=== PATIENT | female | born 1995 | race Caucasian/White ===

== ENCOUNTER 2017-05-15 12:06 | Inpatient (IN) | payer OTHER ==
[~2017-05-15] VITALS: Ht 157.5 cm; Wt 76.0 kg
--- NOTE | 2017-05-15 15:22 | ERD ---
ER Documentation Chief Complaint Date/Time DATE: 05/15/17 TIME: 15:18 Chief Complaint pelvic pain x 1.5 weeks with dyuria HPI This is a 21-year-old female presenting to emergency department with dysuria and right lower pelvic pain 1.5 weeks. Patient was previously seen by her primary care provider and was told she has a "cyst" on her left ovary. Patient was told to follow-up with a specialist and has not been able to do so. Patient states she is waiting for an appointment. Patient continues to have dysuria with right sided lower pelvic pain. No fevers or chills. No vomiting or diarrhea. Patient admits to nausea. Patient also states she has swelling in her abdomen. No urinary frequency or urgency. No hematuria. No vaginal discharge or rash. ROS All systems reviewed and are negative except as per history of present illness. Allergies Allergies: Uncoded Allergies: PCN (Allergy, Unknown, HIVES, SOB, 05/15/17) PMhx/Soc Medical and Surgical Hx: pt denies Medical Hx History of Surgery: No Anesthesia Reaction: No Hx Neurological Disorder: No Hx Respiratory Disorders: No Hx Cardiac Disorders: No Hx Psychiatric Problems: No Hx Miscellaneous Medical Probl: No Hx Alcohol Use: No Hx Substance Use: No Hx Tobacco Use: No Smoking Status: Never smoker Physical Exam Vitals Vital Signs Date Time Temp Pulse Resp B/P Pulse Ox O2 Delivery O2 Flow Rate FiO2 05/15/17 12:32 99.5 108 20 144/92 96 Physical Exam Const: No acute distress, alert Head: Atraumatic Eyes: Normal Conjunctiva ENT: Normal External Ears, Nose and Mouth. Neck: Full range of motion..~ No meningismus. Resp: Clear to auscultation bilaterally Cardio: Regular rate and rhythm, no murmurs Abd: Soft, non tender. Normal bowel sounds, distended with ascites. negative murphys sign. negative rebound tenderness. negative peritoneal signs. Skin: No petechiae or rashes Back: No midline or flank tenderness Ext: No cyanosis, or edema Neur: Awake and alert Psych: Normal Mood and Affect Result Diagram: 05/16/17 0424 05/15/17 1540 Results 24 hrs Laboratory Tests Test 05/15/17 15:40 05/15/17 15:56 White Blood Count 5.310^3/ul Red Blood Count 4.5910^6/ul Hemoglobin 14.2g/dl Hematocrit 41.1% Mean Corpuscular Volume 89.5fl Mean Corpuscular Hemoglobin 30.9pg Mean Corpuscular Hemoglobin Concent 34.5g/dl Red Cell Distribution Width 12.3% Platelet Count 56268^3/UL Mean Platelet Volume 10.0fl Neutrophils % 53.5% Lymphocytes % 35.4% Monocytes % 10.3% Eosinophils % 0.4% Basophils % 0.4% Nucleated Red Blood Cells % 0.0/100WBC Neutrophils # (Manual) 2.910^3/ul Lymphocytes # 1.910^3/ul Monocytes # 0.610^3/ul Eosinophils # 0.010^3/ul Basophils # 0.010^3/ul Nucleated Red Blood Cells # 0.010^3/ul Sodium Level 143mmol/L Potassium Level 4.0mmol/L Chloride Level 103mmol/L Carbon Dioxide Level 24mmol/L Anion Gap 20 Blood Urea Nitrogen 11mg/dl Creatinine 0.63mg/dl Glucose Level 91mg/dl Lactic Acid Level 1.2mmol/L Calcium Level 9.5mg/dl Total Bilirubin 0.2mg/dl Direct Bilirubin 0.00mg/dl Indirect Bilirubin 0.2mg/dl Aspartate Amino Transf (AST/SGOT) 30IU/L Alanine Aminotransferase (ALT/SGPT) 32IU/L Alkaline Phosphatase 54IU/L Total Protein 8.2g/dl Albumin 4.7g/dl Globulin 3.50g/dl Albumin/Globulin Ratio 1.34 Lipase 123U/L Bedside Urine pH (LAB) 5.5 Bedside Urine Protein (LAB) Trace Bedside Urine Glucose (UA) Negative Bedside Urine Ketones (LAB) Negative Bedside Urine Blood Trace-lysed Bedside Urine Nitrite (LAB) Negative Bedside Urine Leukocyte Esterase (L Negative Current Medications Medications (Trade) Dose Ordered Sig/Demetrius Route PRN Reason Start Time Stop Time Status Last Admin Dose Admin IV Flush (NS 3 ml) 3 ml PER PROTOCOL IV 05/15/17 18:30 Ondansetron HCl (Zofran Inj) 4 mg Q6H PRN IV NAUSEA AND/OR VOMITING 05/15/17 18:30 Ibuprofen (Motrin) 600 mg Q6H PRN PO PAIN LEVEL 1-3 05/15/17 18:30 Acetaminophen/ Hydrocodone Bitart ([place] (5/325)) 1 tab Q6H PRN PO MODERATE PAIN LEVEL 4-6 05/15/17 18:30 Docusate Sodium 100 mg 100 mg Q12H PRN PO CONSTIPATION 05/15/17 18:30 Lactated Ringer's (Lr) 1,000 ml @ 125 mls/hr Q8H IV 05/15/17 18:30 05/15/17 23:22 DC 05/15/17 19:00 Procedures/MDM [place] [address] Radiology Main Line: [phone] DIAGNOSTIC IMAGING REPORT Patient: JENNIE PATTERSON : 1995 Age: 21 Sex: F MR #: [id number] DOS: 05/15/17 1509 Ordering MD: MODESTO VALDERRAMA NP Location: [facility] Room/Bed: PROCEDURE: US Pelvis. CLINICAL INDICATION: pelvic pain TECHNIQUE: Multiple sonographic images of the pelvis were obtained utilizing a transabdominal technique. The images were reviewed on a PACS workstation. COMPARISON: None. FINDINGS: The uterus and ovaries were not seen. There is a large cystic mass in the anterior abdomen and pelvis measuring 38.7 x 16.5 x 32.5 cm. No free fluid is present within the pelvis. RPTAT: AA IMPRESSION: Large cystic mass involving the abdomen and pelvis measuring up to 38.7 cm. Further evaluation with CT and surgical consultation is recommended. [place] [address] Radiology Main Line: [phone] DIAGNOSTIC IMAGING REPORT Patient: JENNIE PATTERSON : 1995 Age: 21 Sex: F MR #: [id number] DOS: 05/15/17 1626 Ordering MD: MODESTO VALDERRAMA NP Location: [facility] Room/Bed: PROCEDURE: CT abdomen and pelvis without IV contrast. CLINICAL INDICATION: Abdominal pain TECHNIQUE: CT scan of the abdomen and pelvis without contrast was performed on the [employer] volumetric [address] scanner. The patient was scanned without intravenous contrast. Coronal and sagittal reformatted images were obtained from the axial source images. The CTDI vol is 16.99 mGy and the DLP is 1019.36 mGy-cm. COMPARISON: None. FINDINGS: CT abdomen: The lung bases are clear. The heart size is not enlarged and is without pericardial thickening or effusion. A large cystic mass is seen originating from the pelvis extending into the abdomen which is well circumscribed. No evidence of nodularity or a soft tissue density within the cystic mass is seen. The cystic mass measures approximately 39 9 x 30.1 x 16.8 cm in size. Mass effect upon the surrounding structures is seen. The liver is normal in size and density and is without focal mass or intrahepatic biliary dilatation. The spleen is normal in size and homogeneous in density. The stomach is grossly unremarkable. The pancreas as visualized is normal. The gallbladder and biliary tree are unremarkable and there is no evidence for common bile duct dilatation. The adrenal glands are symmetric and normal. The kidneys are symmetrically unremarkable as well. No renal calculus or obstructive uropathy or mass lesion is seen. The aorta is of normal in caliber. There is no retroperitoneal lymphadenopathy. The antwon hepatis region is clear. The small and large bowel and mesentery, as visualized, are unremarkable. The normal appendix is identified. CT pelvis: The pelvic organs are normal. The pelvic sidewalls and inguinal regions are clear. No pelvic mass, lymphadenopathy, or focal fluid collection is seen. A small amount of free fluid is seen. No acute inflammation is seen. The urinary bladder is within normal limits. The surrounding osseous structures are unremarkable. No osteolytic or osteoblastic lesion is detected. IMPRESSION: 1. 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 2. Small amount of free fluid in the pelvis. MDM: This is a 21-year-old female presenting to emergency department with right lower quadrant pelvic pain and dysuria 1.5 weeks. Patient is afebrile and tachycardia with heart rate 10 8 bpm. Patient was told previously that she has a cyst on her left ovary. On physical exam patient has distention of abdomen and ascites. CBC shows no significant anemia or infection. CMP shows no significant electrolyte imbalance Lipase shows 123. Lactic acid is 1.2. Urine dip is negative for infection. Urine is negative. Ultrasound pelvis reviewed by radiologist as Large cystic mass involving the abdomen and pelvis measuring up to 38.7 cm. Further evaluation with CT and surgical consultation is recommended.. CT abdomen pelvis reviewed by radiologist as large abdominal pelvic cystic mass likely ovarian in orgin and may represent a cystic ovarian neoplasm. Discussed findings with Dr. Sales and he instructed me to consult laborist. Consulted laborist men's custom hair piece consultant and he will come examine the patient. Patient signed out to Arian Mcclellan pending possible admission. Departure Diagnosis: Primary Impression: Pelvic mass Condition: MODESTO Rivera NP May 15, 2017 15:22
[2017-05-15 15:50] LABS: URINE BLOOD (Dip) POC Trace-lysed (NEGATIVE)
[2017-05-15 15:56] LABS: BASOPHILS % 0.4 % (0.0-2.0); EOSINOPHILS % 0.4 % (0.0-7.0); HEMATOCRIT 41.1 % (37.0-47.0); HEMOGLOBIN 14.2 g/dl (12.0-16.0); LYMPHOCYTES # 1.9 10^3/ul (0.8-2.9); LYMPHOCYTES % 35.4 % (18.0-55.0); MEAN CORPUSCULAR HEMOGLOBIN 30.9 pg (29.0-33.0); MEAN CORPUSCULAR HGB CONC 34.5 g/dl (32.0-37.0); MEAN CORPUSCULAR VOLUME 89.5 fl (72.0-104.0); MONOCYTE # 0.6 10^3/ul (0.3-0.9); MONOCYTES % 10.3 % (0.0-13.0); NEUTROPHILS % 53.5 % (30.0-74.0); PLATELET COUNT 245 10^3/UL (140-415); RED BLOOD COUNT 4.59 10^6/ul (4.20-5.40); RED CELL DISTRIBUTION WIDTH 12.3 % (11.5-14.5); WHITE BLOOD COUNT 5.3 10^3/ul (4.8-10.8)
[2017-05-15 16:14] LABS: ALBUMIN 4.7 g/dl (3.3-4.9); ALBUMIN/GLOBULIN RATIO 1.34; BILIRUBIN,INDIRECT 0.2 mg/dl (0-1.1); BILIRUBIN,TOTAL 0.2 mg/dl (0.2-1.3); CALCIUM 9.5 mg/dl (8.4-10.2); CREATININE 0.63 mg/dl (0.44-1.00); TOTAL PROTEIN 8.2 g/dl (6.1-8.1)
--- NOTE | 2017-05-15 16:38 | RADRPT ---
PROCEDURE: US Pelvis. CLINICAL INDICATION: pelvic pain TECHNIQUE: Multiple sonographic images of the pelvis were obtained utilizing a transabdominal cleve hnique. The images were reviewed on a PACS workstation. COMPARISON: None. FINDINGS: The uterus and ovaries were not seen. There is a large cystic mass in the anterior abdomen and pelvis measuring 38.7 x 16.5 x 32.5 cm. No free fluid is present within the pelvis. RPTAT: AA IMPRESSION: Large cystic mass involving the abdomen and pelvis measuring up to 38.7 cm. Further evaluation with CT and surgical consultation is recommended. .Speedy De Santiago MD, MD Date Time Electronically viewed and signed by .Speedy De Santiago MD, on 05/15/2017 16:37 .S/
--- NOTE | 2017-05-15 17:44 | RADRPT ---
AMENDMENT: 05/15/2017 5:54:06 PM Wes Hamilton M.D Mild bilateral hydroureteronephrosis is also seen secondary to compression from the large abdominal pelvic mass. PROCEDURE: CT abdomen and pelvis without IV contrast. CLINICAL INDICATION: Abdominal pain TECHNIQUE: CT scan of the abdomen and pelvis without contrast was performed on the [employer] volumetric [address] scanner. The patient was scanned without intravenous contrast. Coronal and sagittal refo rmatted images were obtained from the axial source images. The CTDI vol is 16.99 mGy and the DLP is 1019.36 mGy-cm. COMPARISON: None. FINDINGS: CT abdomen: The lung bases are clear. The heart size is not enlarged and is without pericardial thickening or e ffusion. A large cystic mass is seen originating from the pelvis extending into the abdomen which is well cir cumscribed. No evidence of nodularity or a soft tissue density within the cystic mass is seen. The cystic mass measures approximately 39 9 x 30.1 x 16.8 cm in size. Mass effect upon the surrounding structures is seen. The liver is normal in size and density and is without focal mass or intrahepatic biliary dilatation . The spleen is normal in size and homogeneous in density. The stomach is grossly unremarkable. T he pancreas as visualized is normal. The gallbladder and biliary tree are unremarkable and there is no evidence for common bile duct dilatation. The adrenal glands are symmetric and normal. The kid neys are symmetrically unremarkable as well. No renal calculus or obstructive uropathy or mass lesi on is seen. The aorta is of normal in caliber. There is no retroperitoneal lymphadenopathy. The antwon hepatis region is clear. The small and large bowel and mesentery, as visualized, are unremarkable. The norm al appendix is identified. CT pelvis: The pelvic organs are normal. The pelvic sidewalls and inguinal regions are clear. No pelvic mass, lymphadenopathy, or focal fluid collection is seen. A small amount of free fluid is seen. No acute inflammation is seen. The urinary bladder is within normal limits. The surrounding osseous structures are unremarkable. No osteolytic or osteoblastic lesion is detect ed. IMPRESSION: 1. Large abdominal pelvic cystic mass likely ovarian in origin and may represent a cystic ovarian n eoplasm. 2. Small amount of free fluid in the pelvis. RPTAT: HPNM Klaus Hamilton, Physician Date Time Electronically viewed and signed by Klaus Hamilton, Physician on 05/15/2017 17:54 /
--- NOTE | 2017-05-15 18:20 | EN ---
Date/Time of Note Date/Time of Note DATE: 05/15/17 TIME: 18:18 ER Progress Note Patient was handed off to me. Laborist on-call was consulted. They versed surgeon chief has decided to admit. Attending was updated. Patient will be transferred to the care of the laborist surgeon chief. MOIRA LOZANO PA-C May 15, 2017 18:20
[2017-05-15] MEDS ORDERED: DOCUSATE SODIUM 100 MG CAP PO PRN (18:30)
[2017-05-15] MEDS ORDERED: HYDROCODONE/APAP (5/325) TAB PO PRN (18:30)
[2017-05-15] MEDS ORDERED: IBUPROFEN 600 MG TAB PO PRN (18:30)
[2017-05-15] MEDS ORDERED: NACL 0.9% 3 ML SYG IV SCH (18:30)
[2017-05-15] MEDS ORDERED: LACTATED RINGER'S 1,000 ML IV SCH (18:30)
[2017-05-15 20:55] VITALS: BP 130/85; RESP 20
[2017-05-15] MEDS ORDERED: ONDANSETRON 4 MG INJ IV PRN (21:00)
[2017-05-15] MEDS ORDERED: ACETAMINOPHEN 325 MG TAB PO PRN (21:00)
[2017-05-15 21:59] VITALS: TEMP 99.6
[2017-05-15 23:25] VITALS: Ht 157.5 cm; Wt 76.0 kg
[2017-05-15] MEDS ORDERED: HYDROmorphONE 1 MG/ML SYG IV PRN (23:30)
[2017-05-15] MEDS: DEXTROSE 5%-LR 1,000 ML IV SCH (23:55)
--- NOTE | 2017-05-16 03:07 | HP ---
DATE OF ADMISSION: 05/15/2017 HISTORY OF PRESENT ILLNESS: Patient is a 21-year-old who presents for approximately a month ago complaining of abdominal pain, worsening with a sharp stabbing pain all over her stomach. PAST MEDICAL HISTORY: None. PAST SURGICAL HISTORY: None. MEDICATIONS: None. PHYSICAL EXAMINATION: VITAL SIGNS: Stable. CARDIAC: Regular rhythm. . ABDOMEN: Soft, nontender. Appears to be distended. EXTREMITIES: There is no edema in the extremities. IMAGING STUDIES: Ultrasound and CT scan both show an approximately 39 x 30 cm x 17 cm cystic mass in the lower pelvis area consistent with ovarian mass. IMPRESSION: This is a 21-year-old with a 40 x 30 cm ovarian mass. Patient currently stable, minimal pain. No nausea or vomiting. PLAN: Patient will be admitted for surgical management and consultation will be asked for by a DATA ENTRY EMAIL PROCESSOR oncologist for further surgical management of this patient. Dictated By: Milo Spivey MD /amalia/[place] /Document#: [id number]
[2017-05-16 05:34] LABS: BASOPHILS % 0.6 % (0.0-2.0); EOSINOPHILS # 0.1 10^3/ul (0.0-0.5); EOSINOPHILS % 1.1 % (0.0-7.0); HEMATOCRIT 36.6 % (37.0-47.0); HEMOGLOBIN 12.5 g/dl (12.0-16.0); LYMPHOCYTES # 1.9 10^3/ul (0.8-2.9); MEAN CORPUSCULAR HEMOGLOBIN 31.1 pg (29.0-33.0); MEAN CORPUSCULAR HGB CONC 34.2 g/dl (32.0-37.0); MEAN PLATELET VOLUME 10.4 fl (7.4-10.4); MONOCYTE # 0.5 10^3/ul (0.3-0.9); MONOCYTES % 11.1 % (0.0-13.0); NEUTROPHILS % 47.2 % (30.0-74.0); PLATELET COUNT 198 10^3/UL (140-415); RED BLOOD COUNT 4.02 10^6/ul (4.20-5.40); RED CELL DISTRIBUTION WIDTH 12.3 % (11.5-14.5); WHITE BLOOD COUNT 4.7 10^3/ul (4.8-10.8)
[2017-05-16 06:02] LABS: INR 1.09; PROTIME 14.1 Sec (12.2-14.2); PT RATIO 1.1
[2017-05-16 06:03] LABS: PARTIAL THROMBOPLASTIN TIME 29.7 Sec (25.0-35.0)
[2017-05-16 06:21] LABS: CANCER ANTIGEN 125 16.8 U/ml (0.0-35.0); CARCINOEMBRYONIC ANTIGEN 0.4 ng/ml (0.0-5.0)
[2017-05-16 07:00] VITALS: BP 124/70; RESP 18
[2017-05-16] MEDS: DEXTROSE 5%-LR 1,000 ML IV SCH (11:56)
[2017-05-16] MEDS ORDERED: MAGNESIUM CITRATE 300 ML BTL PO ONE (12:00)
[2017-05-16 14:00] VITALS: BP 126/78; RESP 20
[2017-05-16 20:55] VITALS: BP 116/80; RESP 20
--- NOTE | 2017-05-16 21:24 | CONS ---
Date/Time of Note Date/Time of Note DATE: 05/16/17 TIME: 21:23 Consultation Date/Type/Reason Admit Date/Time May 15, 2017 at 18:32 Hx of Present Illness Shalom Carrington M.D. [facility] History and Physical Examination Becca Garcia Date:May 16, 2017 :1995 Age: 21 Physicians: Photocopying Machine Operator Director Biologics Oncologist Referring MD: Milo Spivey History of the Present Illness: A 21 year old female with a gradually increasing pelvic mass and the patient complains of the process gradually increasing over a year. The mass is cystic and 38 cm, now assocaited with nausea and pain. The markers are all negative. Medical history/ROS: all other systems unremarkable. Surgical history: no significant abdominal procedures. Medications: gardisil Allergies: No active allergies recorded Family Hx: non-contributary Social HX: non-contributary ROS: as above Colonoscopy Physical Examination General: Alert. HEENT: Pupils are equal, round, reactive to light and accommodation. Neck: Supple with no masses of lymphadenopathy. Breast: Deferred due to recent examination and responsibility of primary care physician. Chest: Clear to auscultation Heart: Normal rhythm with no murmur. Abdomen: massive mass and mod tender, no ascites nor organomeglay. Pelvic exam: deferred dueto virginity Rectal: as above. Neurological: Grossly intact Assessment: Pelvic-abdominal mass Plan: advise Laparoscoy USO possible contralateral cystectomy and staging and possible laoarotomy. All risks and benefits of this procedure have been discussed in detail with the patient, as well as alternative treatment strategies and their implications. The patient is aware that there is some possibility of a blood transfusion and its associated risks and benefits. She wishes to proceed and gives her informed consent. Shalom Carrington M.D. Social History Smoking Status: Never smoker Exam/Review of Systems Vital Signs Vitals Vital Signs Date Time Temp Pulse Resp B/P Pulse Ox O2 Delivery O2 Flow Rate FiO2 05/16/17 20:55 98.2 71 20 116/80 100 05/15/17 21:59 Room Air Intake and Output 05/15/17 05/15/17 05/16/17 15:00 23:00 07:00 Intake Total 850 ml Balance 850 ml Results Result Diagram: 05/16/17 0424 05/15/17 1540 Results 24 hrs Laboratory Tests Test 05/16/17 04:24 White Blood Count 4.7 L Red Blood Count 4.02 L Hemoglobin 12.5 Hematocrit 36.6 L Mean Corpuscular Volume 91.0 Mean Corpuscular Hemoglobin 31.1 Mean Corpuscular Hemoglobin Concent 34.2 Red Cell Distribution Width 12.3 Platelet Count 198 Mean Platelet Volume 10.4 Neutrophils % 47.2 Lymphocytes % 40.0 Monocytes % 11.1 Eosinophils % 1.1 Basophils % 0.6 Nucleated Red Blood Cells % 0.0 Neutrophils # (Manual) 2.2 Lymphocytes # 1.9 Monocytes # 0.5 Eosinophils # 0.1 Basophils # 0.0 Nucleated Red Blood Cells # 0.0 Prothrombin Time 14.1 Prothrombin Time Ratio 1.1 INR International Normalized Ratio 1.09 Activated Partial Thromboplast Time 29.7 Lactate Dehydrogenase 357 Alpha Fetoprotein 1.83 Carcinoembryonic Antigen 0.4 CA 125 Antigen 16.8 Serum HCG, Qualitative NEGATIVE Medications Medications Current Medications Ondansetron HCl (Zofran Inj) 4 mg Q6H PRN IV NAUSEA AND/OR VOMITING; Start at 18:30 Ibuprofen (Motrin) 600 mg Q6H PRN PO PAIN LEVEL 1-3; Start 05/15/17 at 18:30 Acetaminophen/ Hydrocodone Bitart ([place] (5/325)) 1 tab Q6H PRN PO MODERATE PAIN LEVEL 4-6; Start 05/15/17 at 18:30 Docusate Sodium 100 mg 100 mg Q12H PRN PO CONSTIPATION; Start 05/15/17 at 18:30 Dextrose/Lactated Ringer's (D5-Lr) 1,000 ml @ 80 mls/hr [id number] IV Last administered on 05/16/17t 11:56; Admin Dose 80 MLS/HR; Start 05/15/17 at 23:30 Hydromorphone HCl (Dilaudid) 0.5 mg Q4H PRN IV PAIN; Start 05/15/17 at 23:30 SHALOM CARRINGTON MD May 16, 2017 21:24
[2017-05-17] MEDS: DEXTROSE 5%-LR 1,000 ML IV SCH ×2 (00:46→12:37)
[2017-05-17 02:51] VITALS: BP 111/58; RESP 20
[2017-05-17 05:57] LABS: CALCIUM 8.8 mg/dl (8.4-10.2); CREATININE 0.66 mg/dl (0.44-1.00); POTASSIUM 3.7 mmol/L (3.5-5.1)
[2017-05-17 07:48] VITALS: BP 128/77; RESP 16
[2017-05-17] MEDS ORDERED: MAGNESIUM CITRATE 300 ML BTL PO ONE (10:00)
[2017-05-17 14:50] VITALS: BP 127/82; RESP 16
[2017-05-17 19:50] VITALS: BP 118/65; RESP 20
--- NOTE | 2017-05-17 22:19 | PN ---
Date/Time of Note Date/Time of Note DATE: 05/17/17 TIME: 22:15 Assessment/Plan VTE Prophylaxis VTE Prophylaxis Intervention: SCD's Lines/Catheters IV Catheter Type (from Nrsg): Peripheral IV Assessment/Plan Chief Complaint/Hosp Course Pelvic-abdominal mass Problems: Assessment/Plan A- tolerating prep, markers neg P- procedure tomorrow as no ORT today Subjective 24 Hr Interval Summary Free Text/Dictation Ongoing discomfort but tolerating prep. Exam/Review of Systems Vital Signs Vitals Vital Signs Date Time Temp Pulse Resp B/P Pulse Ox O2 Delivery O2 Flow Rate FiO2 05/17/17 19:50 98.3 75 20 118/65 98 05/15/17 21:59 Room Air Intake and Output 05/16/17 05/16/17 05/17/17 15:00 23:00 07:00 Intake Total 2160 ml 1190 ml Output Total 1600 ml Balance 560 ml 1190 ml Exam Resp- clear CVS- NSR Abd- soft mildly tender but very distended Ext- NT no edema Results Result Diagram: 05/16/17 0424 05/17/17 0453 Results 24 hrs Laboratory Tests Test 05/17/17 04:53 Sodium Level 143 Potassium Level 3.7 Chloride Level 107 Carbon Dioxide Level 25 Anion Gap 15 Blood Urea Nitrogen 6 L Creatinine 0.66 Glucose Level 93 Calcium Level 8.8 Medications Medications Current Medications Ondansetron HCl (Zofran Inj) 4 mg Q6H PRN IV NAUSEA AND/OR VOMITING; Start at 18:30 Ibuprofen (Motrin) 600 mg Q6H PRN PO PAIN LEVEL 1-3; Start 05/15/17 at 18:30 Acetaminophen/ Hydrocodone Bitart ([place] (5/325)) 1 tab Q6H PRN PO MODERATE PAIN LEVEL 4-6; Start 05/15/17 at 18:30 Docusate Sodium 100 mg 100 mg Q12H PRN PO CONSTIPATION; Start 05/15/17 at 18:30 Dextrose/Lactated Ringer's (D5-Lr) 1,000 ml @ 80 mls/hr [id number] IV Last administered on 05/17/17t 12:37; Admin Dose 80 MLS/HR; Start 05/15/17 at 23:30 Hydromorphone HCl (Dilaudid) 0.5 mg Q4H PRN IV PAIN; Start 05/15/17 at 23:30 SANTA CARRINGTON MD May 17, 2017 22:19
[2017-05-18] VITALS (22 sets, daily range): BP systolic 100–122; BP diastolic 51–77; PULSE 76–97; RESP 11–20
[2017-05-18] MEDS: DEXTROSE 5%-LR 1,000 ML IV SCH ×2 (02:48→15:33)
[2017-05-18] MEDS ORDERED: metroNIDAZOLE 500 MG/100 ML NS IVPB ONE (07:00)
--- NOTE | 2017-05-18 12:59 | HPN ---
Date/Time of Note Date/Time of Note DATE: 05/18/17 TIME: 12:58 Interval H&P Admission Note Pt. seen H&P reviewed: No system changes SANTA CARRINGTON MD May 18, 2017 12:59
[2017-05-18] MEDS ORDERED: MIDAZOLAM 1 MG/ML 2 ML INJ ONE (18:13)
[2017-05-18] MEDS ORDERED: METOCLOPRAMIDE 10 MG INJ ONE (18:13)
[2017-05-18] MEDS ORDERED: morphine SULFATE/PF (10 MG/10 ML) INJ ONE (18:14)
[2017-05-18] MEDS ORDERED: PHENYLephrine (100 MCG/ML) 5ML SYG ONE ×3 (18:25→19:19)
[2017-05-18] MEDS ORDERED: PROVENTIL HFA 6.7GM INHALER ONE (18:37)
[2017-05-18] MEDS ORDERED: DEXAMETHASONE 4 MG/ML 1 ML INJ ONE (18:53)
[2017-05-18] MEDS ORDERED: EPINEPHrine 100 MCG/10 ML SYG IV ONE (18:54)
[2017-05-18] MEDS ORDERED: EPINEPHrine 0.1 MG/ML SYG ONE (19:08)
[2017-05-18] MEDS ORDERED: ROCURONIUM 50 MG INJ ONE (19:10)
[2017-05-18] MEDS ORDERED: PROPOFOL 200 ML ONE (19:10)
[2017-05-18] MEDS ORDERED: FENTAnyl 50 MCG/ML VIAL ONE (19:30)
[2017-05-18] MEDS ORDERED: THROMBIN 5000 UNIT VIAL ONE (19:31)
[2017-05-18] MEDS ORDERED: HEMOSTATIC MATRIX SYG ZFS ONE (19:33)
[2017-05-18] MEDS ORDERED: HYDROmorphONE 2 MG/ML SYG ONE (20:07)
[2017-05-18] MEDS ORDERED: ESMOLOL 10 ML ONE (20:16)
[2017-05-18] MEDS ORDERED: NEOSTIGMINE 3 MG/3 ML SYRINGE ONE (20:39)
[2017-05-18] MEDS ORDERED: GLYCOPYRROLATE 0.4 MG INJ ONE (20:39)
[2017-05-18] MEDS: POTASSIUM CHLORIDE 20 MEQ in LACTATED RINGER'S 1,000 ML IV SCH (20:50)
--- NOTE | 2017-05-18 20:50 | OPPN ---
Date/Time of Note Date/Time of Note DATE: 05/18/17 TIME: 20:48 Operative Report Preoperative Diagnosis right adnexal mass Postoperative Diagnosis same with ureteral stricture Operation/Procedure Performed laparoscopic RSO, UD, minilap Anesthesia Type: general, spinal, other Estimated blood loss: 10 - 50 ml's Transfusion Required: yes Specimens RSO Grafts/Implants: none Complications: no SANTA CARRINGTON MD May 18, 2017 20:50
[2017-05-18] MEDS ORDERED: HYDROCODONE/APAP (5/325) TAB PO PRN (21:00)
[2017-05-18] MEDS: FAMOTIDINE 20 MG INJ IV SCH (21:00)
[2017-05-18] MEDS ORDERED: morphine 2 MG INJ IV PRN (21:00)
[2017-05-18] MEDS ORDERED: ACETAMINOPHEN 325 MG TAB PO PRN (21:00)
[2017-05-18] MEDS ORDERED: DIPHENHYDRAMINE 50 MG INJ IV PRN (21:00)
[2017-05-18 21:29] LABS: BASOPHILS % 0.2 % (0.0-2.0); HEMATOCRIT 36.7 % (37.0-47.0); HEMOGLOBIN 12.5 g/dl (12.0-16.0); LYMPHOCYTES # 1.6 10^3/ul (0.8-2.9); MEAN CORPUSCULAR HEMOGLOBIN 30.7 pg (29.0-33.0); MEAN CORPUSCULAR HGB CONC 34.1 g/dl (32.0-37.0); MEAN CORPUSCULAR VOLUME 90.2 fl (72.0-104.0); MEAN PLATELET VOLUME 9.8 fl (7.4-10.4); MONOCYTE # 0.2 10^3/ul (0.3-0.9); MONOCYTES % 2.1 % (0.0-13.0); NEUTROPHILS % 79.4 % (30.0-74.0); PLATELET COUNT 192 10^3/UL (140-415); RED BLOOD COUNT 4.07 10^6/ul (4.20-5.40); RED CELL DISTRIBUTION WIDTH 12.2 % (11.5-14.5); WHITE BLOOD COUNT 9.1 10^3/ul (4.8-10.8)
[2017-05-18] MEDS ORDERED: HYDROmorphONE 1 MG/ML SYG IV PRN ×2 (21:30)
[2017-05-18] MEDS ORDERED: ONDANSETRON 4 MG INJ IV PRN (21:30)
[2017-05-18] MEDS ORDERED: HYDROmorphONE (0.2 MG/ML) 10ML SYG IV ONE (21:30)
[2017-05-18] MEDS ORDERED: CEFAZOLIN 1 GM/50 ML (PMX) 50 ML IVPB SCH (21:30)
[2017-05-18 22:01] LABS: CALCIUM 8.2 mg/dl (8.4-10.2); CREATININE 0.57 mg/dl (0.44-1.00); POTASSIUM 3.6 mmol/L (3.5-5.1)
[2017-05-18] MEDS: KETOROLAC 30 MG INJ IV PRN (22:15)
[2017-05-18] MEDS: metroNIDAZOLE 500 MG/NS (PMX) 100 ML IVPB SCH (22:24)
[2017-05-18] MEDS ORDERED: VITAMIN A & D 5 GM OINT PACKET TOP ONE (22:57)
[2017-05-18] MEDS: ONDANSETRON 4 MG INJ IV PRN (23:37)
[2017-05-19] VITALS: BP 107/53; PULSE 83; RESP 17
[2017-05-19 00:11] VITALS: BP 102/52; RESP 20
[2017-05-19] MEDS: DEXTROSE 5%-LR 1,000 ML IV SCH ×2 (02:30→12:11)
[2017-05-19] MEDS: metroNIDAZOLE 500 MG/NS (PMX) 100 ML IVPB SCH ×2 (05:11→12:31)
[2017-05-19] MEDS: KETOROLAC 30 MG INJ IV PRN ×2 (05:13→12:10)
[2017-05-19 05:20] LABS: ABNORMAL IP MESSAGE 1; BASOPHILS % 0.2 % (0.0-2.0); HEMATOCRIT 35.8 % (37.0-47.0); HEMOGLOBIN 12.5 g/dl (12.0-16.0); LYMPHOCYTES # 0.6 10^3/ul (0.8-2.9); LYMPHOCYTES % 9.3 % (18.0-55.0); MEAN CORPUSCULAR HEMOGLOBIN 30.7 pg (29.0-33.0); MEAN CORPUSCULAR HGB CONC 34.9 g/dl (32.0-37.0); MEAN PLATELET VOLUME 9.9 fl (7.4-10.4); MONOCYTE # 0.2 10^3/ul (0.3-0.9); MONOCYTES % 3.9 % (0.0-13.0); NEUTROPHILS % 86.3 % (30.0-74.0); PLATELET COUNT 187 10^3/UL (140-415); RED BLOOD COUNT 4.07 10^6/ul (4.20-5.40); RED CELL DISTRIBUTION WIDTH 11.9 % (11.5-14.5); WHITE BLOOD COUNT 6.1 10^3/ul (4.8-10.8)
[2017-05-19 05:26] LABS: POSITIVE DIFF @See below
[2017-05-19 06:19] LABS: ALBUMIN 3.6 g/dl (3.3-4.9); ALBUMIN/GLOBULIN RATIO 1.33; BILIRUBIN,INDIRECT 0.4 mg/dl (0-1.1); BILIRUBIN,TOTAL 0.4 mg/dl (0.2-1.3); CALCIUM 8.5 mg/dl (8.4-10.2); CREATININE 0.51 mg/dl (0.44-1.00); MAGNESIUM 1.8 mg/dl (1.7-2.5); POTASSIUM 3.8 mmol/L (3.5-5.1); TOTAL PROTEIN 6.3 g/dl (6.1-8.1)
[2017-05-19] MEDS: POTASSIUM CHLORIDE 20 MEQ in LACTATED RINGER'S 1,000 ML IV SCH ×2 (06:56→17:02)
[2017-05-19 07:50] VITALS: BP 113/56; RESP 18
[2017-05-19] MEDS: FAMOTIDINE 20 MG INJ IV SCH ×2 (08:37→21:00)
[2017-05-19] MEDS: ONDANSETRON 4 MG INJ IV PRN (09:32)
--- NOTE | 2017-05-19 13:06 | PN ---
Date/Time of Note Date/Time of Note DATE: 05/19/17 TIME: 13:05 Assessment/Plan VTE Prophylaxis VTE Prophylaxis Intervention: ambulation Lines/Catheters IV Catheter Type (from Nrsg): Peripheral IV Urinary Cath still in place: Yes Subjective 24 Hr Interval Summary Free Text/Dictation Anesthesia note: A 21 year old femalw s/p lap minilaparatomt salpingoophorectomy pod#1 under GA spinal duramorph is doin fine, ni headache, n/v, itching, back is clean, pain is controlled. care pr surgery Exam/Review of Systems Vital Signs Vitals Vital Signs Date Time Temp Pulse Resp B/P Pulse Ox O2 Delivery O2 Flow Rate FiO2 05/19/17 07:50 98.9 92 18 113/56 96 05/19/17 00:00 Room Air 05/18/17 21:03 6.0 Intake and Output 05/18/17 05/18/17 05/19/17 15:00 23:00 07:00 Intake Total 2560 ml 1110 ml Output Total 115 ml 850 ml Balance 2445 ml 260 ml Results Result Diagram: 05/19/17 0451 05/19/17 0451 Results 24 hrs Laboratory Tests Test 05/18/17 21:24 05/19/17 04:51 White Blood Count 9.1 # 6.1 # Red Blood Count 4.07 L 4.07 L Hemoglobin 12.5 12.5 Hematocrit 36.7 L 35.8 L Mean Corpuscular Volume 90.2 88.0 Mean Corpuscular Hemoglobin 30.7 30.7 Mean Corpuscular Hemoglobin Concent 34.1 34.9 Red Cell Distribution Width 12.2 11.9 Platelet Count 192 187 Mean Platelet Volume 9.8 9.9 Neutrophils % 79.4 H 86.3 H Lymphocytes % 18.0 9.3 L Monocytes % 2.1 3.9 Eosinophils % 0.0 0.0 Basophils % 0.2 0.2 Nucleated Red Blood Cells % 0.0 0.0 Neutrophils # (Manual) 7.2 5.3 Lymphocytes # 1.6 0.6 L Monocytes # 0.2 L 0.2 L Eosinophils # 0.0 0.0 Basophils # 0.0 0.0 Nucleated Red Blood Cells # 0.0 0.0 Sodium Level 140 135 Potassium Level 3.6 3.8 Chloride Level 103 106 Carbon Dioxide Level 23 22 Anion Gap 18 H 11 # Blood Urea Nitrogen 6 L 4 L Creatinine 0.57 0.51 Glucose Level 111 117 Calcium Level 8.2 L 8.5 Magnesium Level 1.8 Total Bilirubin 0.4 Direct Bilirubin 0.00 Indirect Bilirubin 0.4 Aspartate Amino Transf (AST/SGOT) 26 Alanine Aminotransferase (ALT/SGPT) 35 Alkaline Phosphatase 41 L Total Protein 6.3 Albumin 3.6 Globulin 2.70 Albumin/Globulin Ratio 1.33 Medications Medications Current Medications Ondansetron HCl (Zofran Inj) 4 mg Q6H PRN IV NAUSEA AND/OR VOMITING Last administered on 05/19/17 09:32; Admin Dose 4 MG; Start 05/15/17 at 18:30 Acetaminophen/ Hydrocodone Bitart ([place] (5/325)) 1 tab Q6H PRN PO MODERATE PAIN LEVEL 4-6; Start 05/15/17 at 18:30 Docusate Sodium 100 mg 100 mg Q12H PRN PO CONSTIPATION; Start 05/15/17 at 18:30 Dextrose/Lactated Ringer's (D5-Lr) 1,000 ml @ 80 mls/hr [id number] IV Last administered on 05/18/17 15:33; Admin Dose 80 MLS/HR; Start 05/15/17 at 23:30 Hydromorphone HCl 0.5 mg 0.5 mg Q4H PRN IV PAIN; Start 05/15/17 at 23:30 Cefazolin Sodium 50 ml @ 100 mls/hr Q8H IVPB ; Start 05/18/17 at 21:30; Status UNV Metronidazole (Flagyl 500 Mg (Pmx)) 100 ml @ 100 mls/hr Q8H IVPB Last administered on 05/19/17 05:11; Admin Dose 100 MLS/HR; Start 05/18/17 at 21:00; Stop 05/19/17 at 20:59 Morphine Sulfate (morphine) 2 mg Q2H PRN IV PAIN LEVEL 6-10 Last administered on 05/19/17 00:01; Admin Dose 2 MG; Start 05/18/17 at 21:00 Acetaminophen/ Hydrocodone Bitart ([place] (5/325)) 1 tab Q6H PRN PO PAIN LEVEL 6 -10; Start 05/18/17 at 21:00 Acetaminophen (Tylenol Tab) 650 mg Q6H PRN PO PAIN AND OR ELEVATED TEMP; Start 05/18/17 at 21:00 Diphenhydramine HCl (Benadryl) 25 mg Q6H PRN IV ITCHING; Start 05/18/17 at 21: 00 Famotidine 20 mg 20 mg Q12 IV Last administered on 05/19/17 08:37; Admin Dose 20 MG; Start 05/18/17 at 21:00 Potassium Chloride/Lactated Ringer's (KCl/Lr) 1,010 ml @ 100 mls/hr Q10H6M IV ; Start 05/18/17 at 20:50 Hydromorphone HCl (Dilaudid) 0.2 mg Q2H PRN IV PAIN LEVEL 1-5; Start 05/18/17 at 21:30 Hydromorphone HCl (Dilaudid) 0.4 mg Q2H PRN IV PAIN LEVEL 6-10 Last administered on 05/18/17 21:34; Admin Dose 0.4 MG; Start 05/18/17 at 21:30 Ketorolac Tromethamine (Toradol) 30 mg Q6H PRN IV PAIN LEVEL 6-10 Last administered on 05/19/17 05:13; Admin Dose 30 MG; Start 05/18/17 at 21:30; Stop 05/21/17 at 21:29 Ondansetron HCl (Zofran Inj) 4 mg Q6H PRN IV NAUSEA AND/OR VOMITING; Start at 21:30 Ibuprofen (Motrin) 600 mg Q6H PRN PO PAIN LEVEL 1-3; Start 05/21/17 at 21:00 TERRI UMANZOR MD May 19, 2017 13:06
[2017-05-19 14:28] VITALS: BP 99/58; RESP 20
[2017-05-19 19:17] VITALS: BP 115/61; RESP 22
[2017-05-20 00:16] VITALS: BP 108/61; RESP 21
[2017-05-20] MEDS: POTASSIUM CHLORIDE 20 MEQ in LACTATED RINGER'S 1,000 ML IV SCH ×3 (02:48→23:44)
[2017-05-20 07:55] VITALS: BP 109/68; RESP 15
[2017-05-20] MEDS: FAMOTIDINE 20 MG INJ IV SCH ×2 (09:00→21:30)
[2017-05-20 14:00] VITALS: BP 112/63; RESP 17
[2017-05-20 19:21] VITALS: BP 114/71; RESP 18
[2017-05-20] MEDS: KETOROLAC 30 MG INJ IV PRN (21:30)
--- NOTE | 2017-05-20 22:28 | OPR ---
Date/Time of Note Date/Time of Note DATE: 05/20/17 TIME: 22:27 Operative Report Free Text/Dictation 3 OPERATIVE REPORT [facility] Name: Becca Garcia Medical Date: 05/18/17 Preoperative Diagnosis: Pelvic mass with intermittent pain Postoperative Diagnosis: 1- Benign adnexal mass pathology pending 2- Pelvic adhesions 3- Ureteral stricture Procedures: 1- Right salpingoophorectomy 2- Right ureteral dissection with repositioning 3- Minilaparotomy Surgeon: Dr. Carrington Mortician Investigator: Dr. Flores Anaesthesia: General with regional Indications for Surgery: The patient is a 21- year old female with a 38 cm complex/cystic right adnexal mass and intermittent pain brought to the operating room to perform a laparoscopic Right salpingoophorectomy and possible staging if needed after considering all options with risks and benefits. Findings and Summary After some issue with anesthesia before the procedure, with exploration we noted a massive cystic mass without excrescences and adhesions to the sidewall with a Name: eBcca [facility] contralateral adnexia also with a functional cyst therefore it was necessary to perform a unilateral ureteral dissection. Subsequently the RSO was then completed uneventfully. Procedure: After being prepped and draped in the usual manner a 5 millimeter trocar was then inserted in the LUQ and the abdomen insufflated after which a large cystic mass was noted without excrescences and an additional 5-millimeter trocar was inserted cephlad to the umbilicus without incident and the abdomen was continuously insufflated to 15 mm of Hg pressure. Subsequently, we placed two 5 millimeter trocars laterally to the umbilicus and gradually aspirated about 10 liters from the mass with a needle suction under high suction without spillage and also used endo-suction and placed a endo-loop with 0- Vicryl suture on the defect, after which we also inserted a 12 millimeter trocar suprapubically. At this time any pelvic adhesions were lysed with sharp dissection and an Omni if not adjacent to serosa. Subsequently we better explored and observed the large deflated right adnexal mass adherent to the pelvic sidewall and a smaller contralateral adnexia was noted with a functional adhexa. Initially the right round ligament was cauterized and transected with a Thunderbeat and the retroperitoneal spaced opened parallel to the IP ligament. The ureter was identified and required an extensive dissection with repositioning due to both the adnexal pathology adherent to the sidewall and the distorting the anatomy. The ureter was dissected from the broad ligament and pathology with an Omni and endo-dissector bluntly throughout the length to the level of the uterine artery and repositioned. Subsequently the ureter was again identified and further lateralized and an opening was created in the broad ligament with the ureter visualized and the IP ligament was thoroughly cauterized and then transected with the Thunderbeat. At this time, triple- pedicle was then desiccated and cauterized with a Thunderbeat and transected and further drained by opening and suction after which the endo-loop was used. The 12-millimeter trocar was slightly enlarged with Name: [facility] sharp dissection and an electrocautery and a 15-millimeter pouch was placed, after which the mass was removed. Subsequently, the incision was partially closed with interrupted 0- Vicryl suture with the endo-close and a 12- millimeter trocar was reinserted. After irrigating and assuring hemostasis the 12-millimeter trocar was removed and the fascia was closed with 0-vicryl using an endo-close devise. The gas was removed and the skin of all sites then closed with 6-0 Monocryl suture with subcuticular 4-0 Monocryl suture for the minilaparotomy. The EBL was 100ml and the patient tolerated the procedure well and left the OR in good condition. Shalom Carrington M.D. Anesthesia Type: general, spinal, other Estimated Blood Loss: 10 - 50 ml's Transfusion Required: yes Complications: no SHALOM CARRINGTON MD May 20, 2017 22:28
--- NOTE | 2017-05-20 22:32 | PN ---
Date/Time of Note Date/Time of Note DATE: 05/20/17 TIME: 22:29 Assessment/Plan VTE Prophylaxis VTE Prophylaxis Intervention: SCD's Lines/Catheters IV Catheter Type (from Nrs): Peripheral IV Urinary Cath still in place: No Assessment/Plan Chief Complaint/Hosp Course Pelvic-abdominal mass Problems: Assessment/Plan A- recovering but some delay P- mobilize and consider possible d/c tomorrow Subjective 24 Hr Interval Summary Free Text/Dictation minimal flatus and cough with some production Exam/Review of Systems Vital Signs Vitals Vital Signs Date Time Temp Pulse Resp B/P Pulse Ox O2 Delivery O2 Flow Rate FiO2 05/20/17 19:21 98.2 69 18 114/71 99 05/19/17 00:00 Room Air 05/18/17 21:03 6.0 Intake and Output 05/19/17 05/19/17 05/20/17 15:00 23:00 07:00 Intake Total 300 ml 960 ml 1320 ml Output Total 2100 ml 750 ml Balance 300 ml -1140 ml 570 ml Exam Resp- minimal SOB but productive cough Abd- clean and NT CVS- NSR Ext- NT no edema Results Result Diagram: 05/19/17 0451 05/19/17 0451 Medications Medications Current Medications Ondansetron HCl (Zofran Inj) 4 mg Q6H PRN IV NAUSEA AND/OR VOMITING Last administered on 05/19/17 09:32; Admin Dose 4 MG; Start 05/15/17 at 18:30 Acetaminophen/ Hydrocodone Bitart ([place] (5/325)) 1 tab Q6H PRN PO MODERATE PAIN LEVEL 4-6; Start 05/15/17 at 18:30 Docusate Sodium (Colace) 100 mg Q12H PRN PO CONSTIPATION; Start 05/15/17 at 18: 30 Hydromorphone HCl (Dilaudid) 0.5 mg Q4H PRN IV PAIN; Start 05/15/17 at 23:30 Morphine Sulfate (morphine) 2 mg Q2H PRN IV PAIN LEVEL 6-10 Last administered on 05/19/17 00:01; Admin Dose 2 MG; Start 05/18/17 at 21:00 Acetaminophen/ Hydrocodone Bitart ([place] (5/325)) 1 tab Q6H PRN PO PAIN LEVEL 6 -10; Start 05/18/17 at 21:00 Acetaminophen (Tylenol Tab) 650 mg Q6H PRN PO PAIN AND OR ELEVATED TEMP; Start 05/18/17 at 21:00 Diphenhydramine HCl (Benadryl) 25 mg Q6H PRN IV ITCHING; Start 05/18/17 at 21: 00 Famotidine 20 mg 20 mg Q12 IV Last administered on 05/20/17 21:30; Admin Dose 20 MG; Start 05/18/17 at 21:00 Potassium Chloride/Lactated Ringer's (KCl/Lr) 1,010 ml @ 100 mls/hr Q10H6M IV Last administered on 05/20/17 13:45; Admin Dose 100 MLS/HR; Start 05/18/17 at 20 :50 Hydromorphone HCl (Dilaudid) 0.2 mg Q2H PRN IV PAIN LEVEL 1-5; Start 05/18/17 at 21:30 Hydromorphone HCl (Dilaudid) 0.4 mg Q2H PRN IV PAIN LEVEL 6-10 Last administered on 05/18/17 21:34; Admin Dose 0.4 MG; Start 05/18/17 at 21:30 Ketorolac Tromethamine (Toradol) 30 mg Q6H PRN IV PAIN LEVEL 6-10 Last administered on 05/20/17 21:30; Admin Dose 30 MG; Start 05/18/17 at 21:30; Stop 05/21/17 at 21:29 Ondansetron HCl (Zofran Inj) 4 mg Q6H PRN IV NAUSEA AND/OR VOMITING; Start at 21:30 Ibuprofen (Motrin) 600 mg Q6H PRN PO PAIN LEVEL 1-3; Start 05/21/17 at 21:00 SANTA CARRINGTON MD May 20, 2017 22:32
[2017-05-21 01:27] VITALS: BP 99/62; RESP 16
[2017-05-21] MEDS: FAMOTIDINE 20 MG INJ IV SCH (09:27)
[2017-05-21] MEDS: POTASSIUM CHLORIDE 20 MEQ in LACTATED RINGER'S 1,000 ML IV SCH (09:35)
[2017-05-21 10:24] VITALS: BP 110/65; PULSE 72; RESP 18
[2017-05-21 13:11] LABS: BASOPHILS % 0.4 % (0.0-2.0); EOSINOPHILS # 0.1 10^3/ul (0.0-0.5); EOSINOPHILS % 2.6 % (0.0-7.0); HEMATOCRIT 41.7 % (37.0-47.0); HEMOGLOBIN 14.7 g/dl (12.0-16.0); LYMPHOCYTES # 1.6 10^3/ul (0.8-2.9); MEAN CORPUSCULAR HEMOGLOBIN 31.1 pg (29.0-33.0); MEAN CORPUSCULAR HGB CONC 35.3 g/dl (32.0-37.0); MEAN CORPUSCULAR VOLUME 88.2 fl (72.0-104.0); MONOCYTE # 0.4 10^3/ul (0.3-0.9); MONOCYTES % 8.7 % (0.0-13.0); NEUTROPHILS % 53.1 % (30.0-74.0); PLATELET COUNT 234 10^3/UL (140-415); RED BLOOD COUNT 4.73 10^6/ul (4.20-5.40); WHITE BLOOD COUNT 4.7 10^3/ul (4.8-10.8)
[2017-05-21 13:47] LABS: CALCIUM 9.2 mg/dl (8.4-10.2); CREATININE 0.55 mg/dl (0.44-1.00)
[2017-05-21 15:40] VITALS: BP 110/63; RESP 20
[2017-05-21] MEDS ORDERED: IBUPROFEN 600 MG TAB PO PRN (21:00)
== END 2017-05-21 19:15 | disposition home or self-care (01) | DRG 743 ==
LOC: FTE 12:06 → MS1 18:32
PROC: 0UB04ZZ Excision of Right Ovary, Percutaneous Endoscopic Approach (ICD-10-PCS; 2017-05-18)
PROC: 0UT54ZZ Resection of Right Fallopian Tube, Percutaneous Endoscopic Approach (ICD-10-PCS; 2017-05-18)
PROC: 0TS64ZZ Reposition Right Ureter, Percutaneous Endoscopic Approach (ICD-10-PCS; principal; 2017-05-18 18:00)
DX: D28.2 Benign neoplasm of uterine tubes and ligaments (principal); N13.5 Crossing vessel and stricture of ureter without hydronephrosis; D27.0 Benign neoplasm of right ovary; R00.0 Tachycardia, unspecified; R14.0 Abdominal distension (gaseous); R30.0 Dysuria; R11.0 Nausea
CPT/HCPCS: 74176; 76856; 80048; 80053; 81003; 82105; 82378; 83605; 83615; 83690; 83735; 84703; 85025; 85610; 85730; 86304; 86305; 86850; 86900; 86901; 86920; 88104; 88305; J0171; J1100; J1170; J1644; J1885; J2250; J2270; J2274; J2370; J2405; J2710; J2765; J3010; J3480; J7120; J7121

== ENCOUNTER 2017-10-22 11:19 | Emergency (ER) | END 2017-10-22 15:56 | disposition home or self-care (01) ==

== ENCOUNTER 2018-07-29 00:01 | Emergency (ER) | END 2018-07-29 02:38 | disposition home or self-care (01) ==